=== PATIENT | female | born 1955 | race African-American/Black ===

== ENCOUNTER 2024-03-04 04:09 | Day surgery (SDC) | payer OTHER ==
[2024-03-03 11:59] VITALS: BMI 31.4
[2024-03-04] MEDS ORDERED: ACETAMINOPHEN 500 MG TABLET (FP) PO PRN (09:58)
[2024-03-04 14:38] VITALS: RESP 20
[2024-03-04] MEDS: LIDOCAINE HCL 1% PRESERVATIVE FREE - 30ML VIAL IJ ONE (15:33)
[2024-03-04] MEDS: DEXAMETHASONE SOD PHOSPHATE 20 MG/5 ML VIAL IM ONE (15:33)
[2024-03-04] MEDS: IOHEXOL 180 MG/1 ML ML IJ ONE (15:34)
[2024-03-04 18:00] VITALS: BP 132/68; PULSE 69; TEMP 97.2
== END 2024-03-04 16:21 | disposition home or self-care (01) ==
LOC: JASU-SURG 04:09
PROVIDERS: ATTEND Pain Medicine Pain Medicine
PROC: 3E0R3BZ Introduction of Anesthetic Agent into Spinal Canal, Percutaneous Approach (ICD-10-PCS; 2024-03-04)
PROC: 3E0R33Z Introduction of Anti-inflammatory into Spinal Canal, Percutaneous Approach (ICD-10-PCS; principal; 2024-03-04 16:00)
DX: M54.16 Radiculopathy, lumbar region (principal); M48.061 Spinal stenosis, lumbar region without neurogenic claudication
CPT/HCPCS: 76000-TC-FY